=== PATIENT | male | born 1975 | race Hispanic/Latino ===

== ENCOUNTER 2016-12-19 08:50 | Emergency (ER) | payer OTHER, SELFPAY ==
[2016-12-19 09:18] LABS: #Basophils 0.1 thou/uL (0.0-0.2); #Lymphocytes 2.5 thou/uL (1.20-3.40); #Monocytes 0.6 thou/uL (0.11-0.59); #Neutrophils 5.8 thou/uL (1.40-6.50); %Basophils 1.1 % (0.0-1.0); %Eosinophils 0.4 % (0.0-10.0); %Monocytes 6.6 % (0.0-10.0); %Neutrophils 63.9 % (42.0-75.0); Hemoglobin 15.6 g/dL (14.0-18.0); Mean Corpuscular Hemoglobin 31.3 pg (27.0-31.0); Mean Corpuscular Volume 89.4 fl (80.0-94.0); Mean Platelet Volume 9.4 fL (7.4-10.4); Platelet Count 259 thou/uL (130-400); RBC Distribution Width 11.6 % (11.5-14.5); Red Blood Cell (RBC) Count 4.98 mill/uL (4.70-6.10)
[2016-12-19 09:32] LABS: ALT (SGPT) 37 U/L (0-55); AST (SGOT) 26 U/L (5-34); Alkaline Phosphatase 71 U/L (40-150); Anion Gap 17 mmol/L (10-20); BUN (Urea Nitrogen) 14 mg/dL (8.9-20.6); Bilirubin, Total 0.4 mg/dL (0.2-1.2); Calc. Creatinine Clearance 0 mL/min (70-130); Calcium 9.3 mg/dL (7.8-10.44); Carbon Dioxide 19 mmol/L (22-29); Chloride 106 mmol/L (98-107); Estimated GFR-MDRD Greater than 90; Globulin 3.4 g/dL (2.4-3.5); Glucose 142 mg/dL (70-105); Potassium 3.6 mmol/L (3.5-5.1); Protein, Total 7.4 g/dL (6.0-8.3); Sodium 138 mmol/L (136-145)
[2016-12-19] MEDS ORDERED: Ketorolac Tromethamine 30 MG/ML VIAL ONE (10:06)
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
== END 2016-12-19 10:45 | disposition home or self-care (01) ==
LOC: MADERS 08:50
DX: T14.8 Other injury of unspecified body region (principal); F17.220 Nicotine dependence, chewing tobacco, uncomplicated; M54.2 Cervicalgia; M25.512 Pain in left shoulder; M25.511 Pain in right shoulder; M25.529 Pain in unspecified elbow; M25.551 Pain in right hip; V89.2XXA Person injured in unspecified motor-vehicle accident, traffic, initial encounter
CPT/HCPCS: 36415; 70450; 71010; 72125; 80053; 85025; 96374; G0390; J1885